=== PATIENT | male | born 1990 | race Caucasian/White ===

== ENCOUNTER → 2016-10-11 | Outpatient (CLI) | payer OTHER ==
--- NOTE | 2016-10-11 13:11 | Diagnostic Imaging Report ---
PROCEDURE: MRI lumbar spine with and without contrast. TECHNIQUE: Multiplanar, multisequence MRI of the lumbar spine was performed with and without contrast. INDICATION: Back pain. Lower extremity paresthesias. COMPARISON: 04/06/2009 FINDINGS: The conus is normal. No intradural lesion is seen. The bone marrow is negative for discitis/osteomyelitis or malignant bone neoplasm. T12-L1: Negative. L1-2: Negative. L2-3: Negative. L3-4: Negative. L4-5: Bilateral metal artifact from pedicle screws in L4 and L5 vertebra is present. Anterolisthesis of L4 on L5 vertebra is present, unchanged. Anterior fusion is present also. Bilateral posterior laminectomy changes has occurred since prior examination. An interbody graft is present. Mild diffusely bulging disc is present which does not affect the thecal sac. There is no compression of the L4 nerve roots in the superior foramina. L5-S1: Rudimentary disc with no disc protrusion or stenosis. With administration of intravenous contrast, there is no significant anterior peridural scar formation. Visualized portions of the abdominal aorta and kidneys are negative. IMPRESSION: 1. Interval laminectomy with anterior and posterior fusion at L4-5. No significant abnormality is identified. Dictated by: Dictated on workstation # [id number]
== END ==
LOC: RAD 09:56
PROVIDERS: ATTEND Family Medicine
DX: M54.5 Low back pain (principal)
CPT/HCPCS: 72158; A9579